=== PATIENT | male | born 1965 | race Caucasian/White ===

== ENCOUNTER 2018-12-30 21:18 | Emergency (ER) | payer MEDICAID ==
[2018-12-30] MEDS ORDERED: Sulfamethoxazole/TMP 800/160mg Tab PO ONE (21:39)
[2018-12-30] MEDS ORDERED: Sulfamethoxazole/TMP 800/160mg Tab ONE (21:42)
--- NOTE | 2018-12-30 21:46 | ED Physician Chart ---
ED Chief Complaint/HPI - Patient Information Date Seen:: 12/30/18 Time Seen:: 21:30 Chief Complaint:: pain left long finger History of Present Illness:: Patient has had pain and swelling just proximal to the nail of the left long finger for 2 weeks. Pain noted to be improved this morning. has been applying antifungal medication to the nail. Allergies:: Allergies Allergy/AdvReac Type Severity Reaction Status Date / Time No Known Allergies Allergy Verified 12/30/18 21:25 Vitals:: Vital Signs - 8 hr 12/30/18 21:20 Temp 97.1 F HR 65 RR 18 BP 126/66 O2 Sat % 97 Historian:: Patient, Family Member Review:: Nurse's Note Reviewed ED Review of Systems - Review of Systems General/Constitutional: No fever Skin: Skin lesions Head: No headache Eyes: No loss of vision ENT: No earache Neck: No neck pain, No swelling Cardio Vascular: No chest pain, No palpitations Pulmonary: No SOB GI: No nausea, No vomiting, No diarrhea G/U: No dysuria Musculoskeletal: No bone or joint pain Endocrine: No polyuria Psychiatric: No prior psych history Hematopoietic: No bruising Allergic/Immuno: No urticaria Neurological: No syncope ED Past Medical History - Past Medical History Past Medical History: No significant medical hx Family History: None Social History: Non Smoker, No Alcohol Surgical History: None Psychiatricy History: None Medication: None Family Medical History - Family Member Mother History Unknown: Yes Ethnicity: ED Physical Exam - Physical Examination General/Constitutional: Well-developed, well-nourished, Alert, No distress Head: Atraumatic Eyes: Lids, conjuctiva normal Other Skin comments:: 5 mm wide redness and swelling proximal to nail of left long finger; nail normal ; no purulence noted ED Assessment - Assessment General Assessment: Patient had cellulitis just proximal to the nail left long finger. The nail itself looks fine so antifungal medicine would have no effect. The cellulitis improved without medication. Just in case there is some remaining cellulitis patient to be given Bactrim DS one in the emergency department and prescribed a 1 week supply to take 1 twice a day. ED Septic Shock - . Is Septic Shock (SBP<90, OR Lactate>4 mmol\L) present?: No - <6hrs of presentation: Vital Signs: Vital Signs - 8 hr 12/30/18 21:20 Temp 97.1 F HR 65 RR 18 BP 126/66 O2 Sat % 97 ED Reassessment (Disposition) - Reassessment Reassessment Condition:: Unchanged - Diagnosis Diagnosis:: Cellulitis left long finger - Aftercare/Follow up Instructions Aftercare/Follow-Up Instructions:: Refer to Discharge Instructions - Patient Disposition Discharge/Transfer:: Home Condition at Disposition:: Stable
== END 2018-12-30 21:57 | disposition home or self-care (01) ==
LOC: ER 21:18
DX: L03.012 Cellulitis of left finger (principal)
CPT/HCPCS: Z7502